=== PATIENT | male | born 1935 | race Caucasian/White ===

== ENCOUNTER 2017-08-21 13:18 | Observation (INO) | payer MEDICARE, OTHER ==
--- NOTE | 2017-08-21 13:56 | RADIOLOGY REPORT (SQ) ---
EXAM DESCRIPTION: CT HEAD WITHOUT COMPLETED DATE/TIME: 08/21/2017 1:46 pm REASON FOR STUDY: altered COMPARISON: None. TECHNIQUE: Axial images acquired through the brain without intravenous contrast. Images reviewed wi th bone, brain and subdural windows. Images stored on PACS. All CT scanners at this facility use dose modulation, iterative reconstruction, and/or weight based d osing when appropriate to reduce radiation dose to as low as reasonably achievable (ALARA). [facility]: Dose Right [facility]: CareDose [facility]: Dose Right [facility]: Teradose 4D [facility]: [employer] RADIATION DOSE: CT Rad equipment meets quality standard of care and radiation dose reduction techniq ues were employed. CTDIvol: 64.6 mGy. DLP: 1163 mGy-cm.mGy. LIMITATIONS: None. FINDINGS: VENTRICLES: Prominent. CEREBRUM: No masses. No hemorrhage. No midline shift. Areas of low density in the white matter mos t likely due to chronic micro-vascular ischemic change. No evidence for acute infarction. CEREBELLUM: No masses. No hemorrhage. No alteration of density. No evidence for acute infarction. EXTRAAXIAL SPACES: Age-related involutional change. No fluid collections. No masses. ORBITS AND GLOBE: No intra- or extraconal masses. Normal contour of globe without masses. CALVARIUM: No fracture. PARANASAL SINUSES: No fluid or mucosal thickening. SOFT TISSUES: No mass or hematoma. OTHER: No other significant finding. IMPRESSION: CHRONIC CHANGES OF ATROPHY AND MICROVASCULAR ISCHEMIA. NO ACUTE PROCESS. EVIDENCE OF ACUTE STROKE: NO. TECHNICAL DOCUMENTATION: JOB ID: [id number] Quality ID # [id number]: Final reports with documentation of one or more dose reduction techniques (e.g., Au tomated exposure control, adjustment of the mA and/or kV according to patient size, use of iterative reconstruction technique) 2010 [employer]- All Rights Reserved
--- NOTE | 2017-08-21 14:06 | RADIOLOGY REPORT (SQ) ---
EXAM DESCRIPTION: CHEST PA/LAT COMPLETED DATE/TIME: 08/21/2017 1:58 pm REASON FOR STUDY: confusion COMPARISON: None. EXAM PARAMETERS: NUMBER OF VIEWS: two views TECHNIQUE: Digital Frontal and Lateral radiographic views of the chest acquired. RADIATION DOSE: NA LIMITATIONS: none FINDINGS: LUNGS AND PLEURA: No opacities, masses or pneumothorax. No pleural effusion. MEDIASTINUM AND HILAR STRUCTURES: No masses or contour abnormalities. HEART AND VASCULAR STRUCTURES: Heart normal size. No evidence for failure. BONES: No acute findings. HARDWARE: Left shoulder arthroplasty. OTHER: No other significant finding. IMPRESSION: NO SIGNIFICANT RADIOGRAPHIC FINDING IN THE CHEST. TECHNICAL DOCUMENTATION: JOB ID: [id number] [employer]- All Rights Reserved
[2017-08-21 14:26] LABS: ABSOLUTE BASOPHILS # (AUTO) 0.1 10^3/uL (0.0-0.2); ABSOLUTE LYMPHOCYTES (AUTO) 1.5 10^3/uL (0.5-4.7); ABSOLUTE MONOCYTES (AUTO) 0.9 10^3/uL (0.1-1.4); ABSOLUTE NEUT (AUTO) 6.6 10^3/uL (1.7-8.2); BASOPHILS % (AUTO) 0.9 % (0-2); EOSINOPHILS % (AUTO) 0.3 % (0-6); HEMATOCRIT 38.3 % (37.9-51.0); LYMPHOCYTES % (AUTO) 16.6 % (13-45); MEAN CORPUSCULAR HEMOGLOBIN 31.7 pg (27.0-33.4); MEAN CORPUSCULAR HGB CONC 33.9 g/dL (32.0-36.0); MEAN CORPUSCULAR VOLUME 94 fl (80-97); MONOCYTES % (AUTO) 9.8 % (3-13); PLATELET COUNT 191 10^3/uL (150-450); RED CELL DISTRIBUTION WIDTH 13.7 % (11.5-14.0); SEGMENTED NEUTROPHILS % (AUTO) 72.4 % (42-78); TOTAL CELLS COUNTED % (AUTO) 100 %; WHITE BLOOD COUNT 9.2 10^3/uL (4.0-10.5)
--- NOTE | 2017-08-21 14:41 | ER Document Report ---
ED General - General Chief Complaint: Altered Mental Status Stated Complaint: CONFUSION Time Seen by Provider: 08/21/17 13:25 Mode of Arrival: Ambulatory Information source: Patient Notes: 81-year-old male presents with with concerns of confusion. It is noted that the patient's has been having confusion episodes over the past few weeks. Patient did have a recent dental infection was placed on amoxicillin and notes his tooth does not hurt any longer but that they are concerned that the Amoxil may be causing new onset confusion. Patient himself denies any weakness any numbness and pain. It is noted that patient does have a tremor for which she has not been evaluated There is no family history of dementia TRAVEL OUTSIDE OF THE [place] IN LAST 30 DAYS: No - HPI Onset: Other Onset/Duration: Worse - Over the past few days Quality of pain: No pain Severity: Mild Pain Level: Denies Associated symptoms: Other Exacerbated by: Denies Relieved by: Denies Similar symptoms previously: No Recently seen / treated by doctor: No - Related Data Allergies/Adverse Reactions: No Known Allergies Allergy (Verified 08/21/17 13:36) Past Medical History - Social History Smoking Status: Never Smoker Cigarette use (# per day): No Chew tobacco use (# tins/day): No Smoking Education Provided: No Family History: Reviewed & Not Pertinent Patient has suicidal ideation: No Patient has homicidal ideation: No - Past Medical History Cardiac Medical History: Reports: Hx Hypertension Renal/ Medical History: Denies: Hx Peritoneal Dialysis Review of Systems - Review of Systems Notes: REVIEW OF SYSTEMS: CONSTITUTIONAL : Denies fever, chills, or sweats. Denies recent illness. EENT: Denies eye, ear, throat, or mouth pain or symptoms. Denies nasal or sinus congestion or discharge. Denies throat, tongue, or mouth swelling or difficulty swallowing. CARDIOVASCULAR: Denies chest pain. Denies palpitations or racing or irregular heart beat. Denies ankle edema. RESPIRATORY: Denies cough, cold, or chest congestion. Denies shortness of breath, difficulty breathing, or wheezing. GASTROINTESTINAL: Denies abdominal pain or distention. Denies nausea, vomiting , or diarrhea. Denies blood in vomitus, stools, or per rectum. Denies black, tarry stools. Denies constipation. GENITOURINARY: Denies difficulty urinating, painful urination, burning, frequency, blood in urine, or discharge. MUSCULOSKELETAL: Denies back or neck pain or stiffness. Denies joint pain or swelling. SKIN: Denies rash, lesions or sores. HEMATOLOGIC : Denies easy bruising or bleeding. LYMPHATIC: Denies swollen, enlarged glands. NEUROLOGICAL: Admits to confusion PSYCHIATRIC: Denies anxiety or stress. Denies depression, suicidal ideation, or homicidal ideation. ALL OTHER SYSTEMS REVIEWED AND NEGATIVE. Dictation was performed using [employer] voice recognition software PHYSICAL EXAMINATION: GENERAL: Well-appearing, well-nourished and in no acute distress. HEAD: Atraumatic, normocephalic. EYES: Pupils equal round and reactive to light, extraocular movements intact, sclera anicteric, conjunctiva are normal. ENT: Nares patent, oropharynx clear without exudates. Moist mucous membranes. NECK: Normal range of motion, supple without lymphadenopathy LUNGS: Breath sounds clear to auscultation bilaterally and equal. No wheezes rales or rhonchi. HEART: Regular rate and rhythm without murmurs ABDOMEN: Soft, nontender, nondistended abdomen. No guarding, no rebound. No masses appreciated. Musculoskeletal: Normal range of motion, no pitting or edema. No cyanosis. NEUROLOGICAL: Cranial nerves grossly intact. Intermittent slurred speech normal gait. Normal sensory, motor exams PSYCH: Normal mood, normal affect. SKIN: Warm, Dry, normal turgor, no rashes or lesions noted. Physical Exam - Vital signs Vitals: Temp Pulse Resp BP Pulse Ox 98.8 F 81 16 165/71 H 97 08/21/17 13:35 08/21/17 13:35 08/21/17 13:35 08/21/17 13:35 08/21/17 13:35 Course - Re-evaluation Re-evalutation: 08/21/17 16:52 Patient does intermittently become confused while I speak with him, he is able to explain to me that he had dental infection that his tooth no longer hurts. Patient was sent for CT lab work. Overall he looks quite well I believe this may be more related to dementia however quick onset and worsening symptoms are the past few days are concerning enough that I would like to admit the patient for metabolic encephalopathy - Vital Signs Vital signs: Temp Pulse Resp BP Pulse Ox 98.8 F 81 16 165/71 H 97 08/21/17 13:35 08/21/17 13:35 08/21/17 13:35 08/21/17 13:35 08/21/17 13:35 - Laboratory Result Diagrams: 08/21/17 14:16 08/21/17 14:16 Laboratory results interpreted by me: 08/21/17 08/21/17 08/21/17 14:16 14:16 14:26 RBC 4.10 L Hgb 13.0 L Sodium 131.7 L Chloride 96 L Total Bilirubin 1.9 H Urine Protein 100 H Urine Ketones TRACE H Urine Ascorbic Acid 40 H - Diagnostic Test Radiology reviewed: Image reviewed, Reports reviewed - EKG Interpretation by Me EKG shows normal: Sinus rhythm, [place], Intervals, QRS Complexes Discharge - Discharge Clinical Impression: Encephalopathy Altered mental state Qualifiers: Altered mental status type: unspecified Qualified Code(s): R41.82 - Altered mental status, unspecified Hypertension Qualifiers: Hypertension type: essential hypertension Qualified Code(s): I10 - Essential ( primary) hypertension Condition: Stable Disposition: ADMITTED OBSERVATION Admitting Provider: Hospitalist Unit Admitted: Telemetry
[2017-08-21 14:45] LABS: APPEARANCE,URINE CLOUDY; BILIRUBIN,URINE NEGATIVE (NEGATIVE); COLOR,URINE YELLOW; GLUCOSE, URINE NEGATIVE (NEGATIVE); KETONES,URINE TRACE mg/dL (NEGATIVE); LEUKOCYTE ESTERASE,URINE NEGATIVE (NEGATIVE); NITRITE,URINE NEGATIVE (NEGATIVE); PROTEIN,URINE 100 mg/dL (NEGATIVE); URINE SPECIFIC GRAVITY 1.012; UROBILINOGEN,URINE NEGATIVE mg/dL (<2.0)
[2017-08-21 14:46] LABS: ALANINE AMINOTRANSFERASE 28 U/L (21-72); ALBUMIN 3.9 g/dL (3.5-5.0); ALKALINE PHOSPHATASE 73 U/L (38-126); ANION GAP 9 (5-19); ASPARTATE AMINO TRANSFERASE 32 U/L (17-59); BILIRUBIN,DIRECT 0.3 mg/dL (0.0-0.4); BILIRUBIN,TOTAL 1.9 mg/dL (0.2-1.3); BLOOD UREA NITROGEN 19 mg/dL (7-20); CALCIUM 9.7 mg/dL (8.4-10.2); CARBON DIOXIDE 27 mmol/L (22-30); CHLORIDE 96 mmol/L (98-107); CREATINE KINASE 129 U/L (55-170); GLUCOSE 108 mg/dL (75-110); POTASSIUM 4.4 mmol/L (3.6-5.0); SODIUM 131.7 mmol/L (137-145); TOTAL PROTEIN 6.8 g/dL (6.3-8.2)
[2017-08-21 14:53] LABS: CREATINE KINASE MB 0.72 ng/mL (<4.55)
[2017-08-21 14:57] LABS: TROPONIN I 0.031 ng/mL
[2017-08-21] MEDS ORDERED: NORMAL SALINE 1000 ML 1,000 ML IV PRN (16:51)
[2017-08-21] MEDS ORDERED: IPRATROPIUM/ALBUTEROL 0.5-2.5 MG/3 ML AMPUL NEB PRN (16:51)
[2017-08-21] MEDS ORDERED: DOCUSATE SODIUM 100 MG CAPSULE PO PRN (16:56)
[2017-08-21] MEDS ORDERED: ZOLPIDEM TARTRATE 5 MG TABLET PO PRN (16:56)
[2017-08-21] MEDS ORDERED: ACETAMINOPHEN 325 MG TABLET PO PRN (16:56)
[2017-08-21] MEDS ORDERED: ONDANSETRON HCL INJ/PF 4 MG/2 ML SDV IV PRN (16:56)
[2017-08-21] MEDS ORDERED: LORAZEPAM INJ 2 MG/1 ML VIAL IV PRN (17:07)
--- NOTE | 2017-08-21 17:25 | PDOC H&P ---
History of Present Illness Admission Date/PCP: 08/21/17 16:48 Patient complains of: Confusion History of Present Illness: CHRIS COLBERT JR is a 81 year old male the past medical history of hypertension , aortic stenosis, osteoarthritis, presents to the emergency department with a report of several weeks of forgetfulness and mild confusion that suddenly worsened in the last 2-3 days associated with suddenly worsening insomnia. The patient has had trouble with word finding, forgetfulness, and attention to detail. 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 He does report that he was recently on amoxicillin for a tooth ache which he completed 1 day ago. He did have a fall approximately 3 weeks ago when he misstepped coming down the stairs from the attic. He did hit his head and was evaluated in an outside emergency department with a CT at that time. The patient also admits to drinking 5-6 ounces of bourbon daily as well as eating 10 gin-soaked raisins daily. He stopped his alcohol intake 2 days ago thinking that this may improve his mental functioning. Both he and his are adamant that the acute worsening of confusion precedes his alcohol cessation. Initial evaluation in the emergency room is essentially unrevealing; chest x- ray and head CT were normal. Laboratory evaluation does show some mild hyponatremia as well as ketones and protein in his urine. He is referred to the hospital service for observation and evaluation of his encephalopathy. Past Medical History Cardiac Medical History: Reports: Hypertension, Heart Murmur - Aortic stenosis Pulmonary Medical History: Reports: Chronic Obstructive Pulmonary Disease (COPD) EENT Medical History: Reports: None Neurological Medical History: Reports: None Endocrine Medical History: Reports: None Renal/ Medical History: Reports: None Malignancy Medical History: Reports: None GI Medical History: Reports: None Musculoskeltal Medical History: Reports: Arthritis Skin Medical History: Reports: None Psychiatric Medical History: Reports: Alcohol Dependency Traumatic Medical History: Reports: None Hematology: Reports: None Infectious Medical History: Reports: None Past Surgical History Past Surgical History: Reports: Herniorrhaphy, Orthopedic Surgery Social History Information Source: Patient, Relative Lives with: Spouse/Significant other Smoking Status: Former Smoker - 3 ppd x 25 years Frequency of Alcohol Use: Heavy - daily; 5-6 oz of bourbon Hx Recreational Drug Use: No Drugs: None - Advance Directive Resuscitation Status: Full Code Family History Family History: Reviewed & Not Pertinent Parental Family History Reviewed: Yes Children Family History Reviewed: Yes Sibling(s) Family History Reviewed.: Yes Medication/Allergy Allergies/Adverse Reactions: No Known Allergies Allergy (Verified 08/21/17 13:36) Review of Systems Constitutional: PRESENT: fatigue - insomnia x 3 days. ABSENT: anorexia, chills , fever(s), headache(s), night sweats, weakness Eyes: ABSENT: visual disturbances Ears: ABSENT: hearing changes Nose, Mouth, and Throat: PRESENT: mouth pain - recent dental pain. ABSENT: headache(s) Cardiovascular: ABSENT: chest pain, dyspnea on exertion, edema, orthropnea, palpitations Respiratory: ABSENT: cough, hemoptysis Gastrointestinal: ABSENT: abdominal pain, constipation, diarrhea, hematemesis, hematochezia, nausea, vomiting Genitourinary: ABSENT: dysuria, hematuria Musculoskeletal: ABSENT: joint swelling Integumentary: ABSENT: rash, wounds Neurological: PRESENT: confusion, memory loss. ABSENT: abnormal gait, abnormal movements, abnormal speech, convulsions, dizziness, focal weakness, frequent falls, lack of coordination, numbness, paresthesias, restless legs, syncope, tingling, tremor(s), vertigo, weakness Psychiatric: ABSENT: anxiety, depression, homidical ideation, suicidal ideation Endocrine: ABSENT: cold intolerance, heat intolerance, polydipsia, polyuria Hematologic/Lymphatic: ABSENT: easy bleeding, easy bruising Physical Exam Vital Signs: Temp Pulse Resp BP Pulse Ox 98.8 F 81 16 165/71 H 97 08/21/17 13:35 08/21/17 13:35 08/21/17 13:35 08/21/17 13:35 08/21/17 13:35 General appearance: PRESENT: no acute distress, well-developed, well-nourished Head exam: PRESENT: atraumatic, normocephalic Eye exam: PRESENT: conjunctiva pink, EOMI, PERRLA. ABSENT: scleral icterus Ear exam: PRESENT: normal external ear exam Mouth exam: PRESENT: moist, tongue midline Neck exam: ABSENT: carotid bruit, JVD, lymphadenopathy, thyromegaly Respiratory exam: PRESENT: clear to auscultation alee, symmetrical, unlabored. ABSENT: rales, rhonchi, wheezes Cardiovascular exam: PRESENT: RRR, +S1, +S2, systolic murmur. ABSENT: diastolic murmur, rubs Pulses: PRESENT: normal dorsalis pedis pul Vascular exam: PRESENT: normal capillary refill GI/Abdominal exam: PRESENT: normal bowel sounds, soft. ABSENT: distended, guarding, mass, organolmegaly, rebound, tenderness Rectal exam: PRESENT: deferred Extremities exam: PRESENT: full ROM. ABSENT: calf tenderness, clubbing, pedal edema Neurological exam: PRESENT: alert, awake, oriented to person, oriented to place , oriented to time, oriented to situation, CN II-XII grossly intact, other - The patient is slow to respond and has difficulty with word finding; he frequently says the wrong word and does recognize his own mistake and is capable of correcting after a few attempts. He is forgetful and repetitive. Resting tremor that is worsened with intentional movements. ABSENT: motor sensory deficit Psychiatric exam: PRESENT: appropriate affect, normal mood. ABSENT: homicidal ideation, suicidal ideation Skin exam: PRESENT: dry, intact, warm. ABSENT: cyanosis, rash Results Impressions: Chest X-Ray 08/21/17 13:25 IMPRESSION: NO SIGNIFICANT RADIOGRAPHIC FINDING IN THE CHEST. Head CT 08/21/17 13:32 IMPRESSION: CHRONIC CHANGES OF ATROPHY AND MICROVASCULAR ISCHEMIA. NO ACUTE PROCESS. EVIDENCE OF ACUTE STROKE: NO. Assessment & Plan - Diagnosis (1) Encephalopathy Is this a current diagnosis for this admission?: Yes Plan: The patient presents with a complaint of several weeks of mild confusion the acutely worsened in the last 72 hours. He was recently treated with amoxicillin but otherwise has no indication changes. Does admit to 5-6 ounces of bourbon daily and reports that his last drink was 2 days ago. He is noted to have a resting tremor that worsened significantly with intention; raising concern for a cerebellar infarct. Differential diagnoses include CVA, neuro degenerative disorder such as Parkinson's, hypothyroidism, dehydration, alcohol dependence/abuse. He is admitted to the floor under observational status on continuous cardiac telemetry. We will complete the TIA/CVA workup with echocardiogram, carotid Dopplers, and MRI. Will check TSH. Will obtain lipid panel, hemoglobin A1c to further stratisfy risks. There are no indications of an acute infection and so will hold antibiotics at this time. We will rehydrate the patient with IV fluids. Repeat CBC and chemistry in the a.m. Provide for patient safety. (2) Hyponatremia Is this a current diagnosis for this admission?: Yes Plan: Likely secondary to dehydration and continuous alcohol use. Will start the patient on IV fluids. (3) Dehydration Is this a current diagnosis for this admission?: Yes Plan: We will start the patient on IV fluids and encourage p.o. intake. (4) COPD (chronic obstructive pulmonary disease) Is this a current diagnosis for this admission?: Yes Plan: We will continue the patient's education; Advair. Duo nebs as needed for shortness of breath. (5) Aortic stenosis Is this a current diagnosis for this admission?: Yes Plan: The patient reports a history of aortic stenosis that is being followed by the valve clinic at [facility]. Will obtain echocardiogram as part of the TIA/CVA workup. (6) Hypertension Qualifiers: Hypertension type: essential hypertension Qualified Code(s): I10 - Essential (primary) hypertension Is this a current diagnosis for this admission?: Yes Plan: We will continue the patient's home medication; losartan. The patient is placed on a cardiac diet. (7) Alcohol dependence Is this a current diagnosis for this admission?: Yes Plan: The patient denies a history of alcohol withdrawal. We will have as needed Ativan available for signs or symptoms of acute alcohol withdrawal. - Time Time Spent: 50 to 70 Minutes Medications reviewed and adjusted accordingly: Yes Anticipated discharge: Home Within: within 24 hours
[2017-08-21 17:36] LABS: FREE T3 3.79 pg/mL (2.77-5.27); FREE T4 (FREE THYROXINE) 1.43 ng/dL (0.78-2.19)
[2017-08-21 17:37] LABS: URINE AMPHETAMINES SCREEN NEGATIVE; URINE BARBITURATES SCREEN NEGATIVE; URINE BENZODIAZEPINES SCREEN NEGATIVE; URINE COCAINE SCREEN NEGATIVE; URINE MARIJUANA (THC) SCREEN NEGATIVE; URINE METHADONE SCREEN NEGATIVE; URINE PHENCYCLIDINE SCREEN NEGATIVE
[2017-08-21 17:50] LABS: THYROID STIMULATING HORMONE 1.26 uIU/mL (0.47-4.68)
--- NOTE | 2017-08-21 19:31 | RADIOLOGY REPORT (SQ) ---
EXAM DESCRIPTION: MRI HEAD WITHOUT COMPLETED DATE/TIME: 08/21/2017 6:44 pm REASON FOR STUDY: TIA/CVA workup R41.82 ALTERED MENTAL STATUS, UNSPECIFIED G93.40 ENCEPHALOPATHY, UNSPECIFIED R73.01 IMPAIRED FASTING GLUCOSE COMPARISON: Noncontrast head CT 08/21/2017 TECHNIQUE: Multiplanar imaging includes non-contrasted T1, T2, FLAIR, and diffusion with ADC map seq uences. Images stored on PACS. LIMITATIONS: None. FINDINGS: ANATOMY: No anomalies. Normal vascular flow voids. Pituitary fossa normal. CSF SPACES: Atrophy induced prominence of ventricles and CSF spaces. CEREBRUM: High signal intensity lesions scattered throughout the white matter on FLAIR imaging with d istribution suggesting micro-vascular ischemic changes. No evidence of hemorrhage, mass, or extraaxi al fluid collection. POSTERIOR FOSSA: No signal alteration. No hemorrhage. No edema, masses or mass effect. Internal dana tory canals, cerebello-pontine angles, mastoids normal. DIFFUSION IMAGING: Negative for acute or sub-acute infarction. ORBITS: No masses. Globes normal. PARANASAL SINUSES: No fluid levels. Mucosa normal. OTHER: No other significant finding. IMPRESSION: ATROPHY AND CHRONIC MICRO-VASCULAR ISCHEMIC CHANGES. OTHERWISE NORMAL MRI OF THE BRAIN W ITHOUT INTRAVENOUS GADOLINIUM CONTRAST. EVIDENCE OF ACUTE STROKE: NO. TECHNICAL DOCUMENTATION: JOB ID: [id number]- All Rights Reserved
--- NOTE | 2017-08-21 22:44 | RADIOLOGY REPORT (SQ) ---
EXAM DESCRIPTION: CAROTID DOPPLER COMPLETED DATE/TIME: 08/21/2017 10:26 pm REASON FOR STUDY: TIA/CVA workup R41.82 ALTERED MENTAL STATUS, UNSPECIFIED G93.40 ENCEPHALOPATHY, UNSPECIFIED R73.01 IMPAIRED FASTING GLUCOSE COMPARISON: None. TECHNIQUE: Grayscale ultrasound, Doppler velocity and spectra, and color Doppler images acquired of the extra-cranial carotid and vertebral arteries. Images stored on PACS. LIMITATIONS: None. FINDINGS: RIGHT CAROTID CCA Velocities: Within normal limits. ICA Velocities Peak systolic 77 cm/s. End diastolic 13 cm/s. Proximal ICA/CCA peak systolic ratio 0.63. Spectra normal. No significant plaque. LEFT CAROTID CCA Velocities: Within normal limits. ICA Velocities Peak systolic 67 cm/s. End diastolic 15 cm/s. Proximal ICA/CCA peak systolic ratio 0.37. Spectra normal. No significant plaque. VERTEBRAL ARTERIES: Antegrade flow. Normal waveforms. SUBCLAVIAN ARTERIES: No finding. OTHER: No other significant finding. IMPRESSION: NO HEMODYNAMICALLY SIGNIFICANT STENOSIS. COMMENT: Quality ID #[id number]: Velocity criteria are extrapolated from the diameter data as defined by t he Society of Radiologists in Ultrasound Consensus Conference. Radiology 2003: 229; 340-346. TECHNICAL DOCUMENTATION: JOB ID: [id number] [employer]- All Rights Reserved
[2017-08-22] MEDS: FAMOTIDINE 20 MG TABLET PO SCH ×2 (00:04→11:30)
[2017-08-22] MEDS: FLUTICASONE/SALMETEROL DISKUS 250-50 MCG/DOSE IH SCH ×2 (00:06→11:30)
[2017-08-22] MEDS: LOSARTAN POTASSIUM 25 MG TABLET PO SCH ×2 (00:06→11:30)
[2017-08-22] MEDS ORDERED: KETOROLAC TROMETHAMINE INJ/PF 30 MG/1 ML SDV IV PRN (01:20)
[2017-08-22] MEDS ORDERED: DIPHENHYDRAMINE HCL 25 MG CAPSULE PO PRN (01:20)
[2017-08-22] MEDS ORDERED: CLINDAMYCIN HCL 150 MG CAPSULE PO ONE (01:45)
[2017-08-22] MEDS ORDERED: DIPHENHYDRAMINE HCL 25 MG CAPSULE PO ONE (02:00)
[2017-08-22 03:10] LABS: HEMATOCRIT 35.3 % (37.9-51.0)
[2017-08-22 03:13] LABS: MEAN CORPUSCULAR HEMOGLOBIN 31.4 pg (27.0-33.4); MEAN CORPUSCULAR VOLUME 92 fl (80-97); PLATELET COUNT 179 10^3/uL (150-450); RED BLOOD COUNT 3.82 10^6/uL (4.35-5.55); RED CELL DISTRIBUTION WIDTH 13.4 % (11.5-14.0); WHITE BLOOD COUNT 8.4 10^3/uL (4.0-10.5)
[2017-08-22 03:34] LABS: ANION GAP 7 (5-19); BLOOD UREA NITROGEN 18 mg/dL (7-20); CALCIUM 9.3 mg/dL (8.4-10.2); CARBON DIOXIDE 26 mmol/L (22-30); CHLORIDE 98 mmol/L (98-107); CHOLESTEROL 174.71 mg/dL (0-200); GLUCOSE 109 mg/dL (75-110); POTASSIUM 4.1 mmol/L (3.6-5.0); SODIUM 130.5 mmol/L (137-145); TRIGLYCERIDES 53 mg/dL (<150)
[2017-08-22 03:45] LABS: DIRECT LDL 106 mg/dL (<100)
[2017-08-22] MEDS ORDERED: CLINDAMYCIN HCL 150 MG CAPSULE PO SCH (09:00)
[2017-08-22] MEDS ORDERED: ENOXAPARIN SODIUM INJ 40 MG/0.4 ML DISP.SYRIN SUBCUT SCH (10:00)
[2017-08-22 10:48] VITALS: BP 118/93
--- NOTE | 2017-08-23 15:46 | PDOC DISCHARGE SUMMARY ---
General - Admit/Disc Date/PCP Admission Date/Primary Care Provider: 08/21/17 16:48 Discharge Date: 08/22/17 - Discharge Diagnosis (1) Encephalopathy Is this a current diagnosis for this admission?: Yes (2) Hyponatremia Is this a current diagnosis for this admission?: Yes (3) Dehydration Is this a current diagnosis for this admission?: Yes (4) COPD (chronic obstructive pulmonary disease) Is this a current diagnosis for this admission?: Yes (5) Aortic stenosis Is this a current diagnosis for this admission?: Yes (6) Hypertension Is this a current diagnosis for this admission?: Yes (7) Alcohol dependence Is this a current diagnosis for this admission?: Yes - Additional Information Resuscitation Status: Full Code Discharge Diet: Cardiac Discharge Activity: Activity As Tolerated, Balance Activity w/Rest, No Driving Prescriptions: Clindamycin HCl [Cleocin 150 mg Capsule] 300 mg PO Q6A #40 capsule Diazepam [Valium 2 mg Tablet] 2 mg PO Q6HP PRN #15 tablet PRN Reason: Anxiety/Agitation Home Medications: Acetaminophen [Acetaminophen Extra Strength] 500 mg PO PRN PRN 08/22/17 Clindamycin HCl [Cleocin 150 mg Capsule] 300 mg PO Q6A #40 capsule 08/22/17 Diazepam [Valium 2 mg Tablet] 2 mg PO Q6HP PRN #15 tablet 08/22/17 Losartan Potassium [Cozaar 100 mg Tablet] 100 mg PO DAILY 08/22/17 History of Present Illness History of Present Illness: CHRIS COLBERT JR is a 81 year old male the past medical history of hypertension , aortic stenosis, osteoarthritis, presents to the emergency department with a report of several weeks of forgetfulness and mild confusion that suddenly worsened in the last 2-3 days associated with suddenly worsening insomnia. The patient has had trouble with word finding, forgetfulness, and attention to detail. 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 He does report that he was recently on amoxicillin for a tooth ache which he completed 1 day ago. He did have a fall approximately 3 weeks ago when he misstepped coming down the stairs from the attic. He did hit his head and was evaluated in an outside emergency department with a CT at that time. The patient also admits to drinking 5-6 ounces of bourbon daily as well as eating 10 gin-soaked raisins daily. He stopped his alcohol intake 2 days ago thinking that this may improve his mental functioning. Both he and his are adamant that the acute worsening of confusion precedes his alcohol cessation. Initial evaluation in the emergency room is essentially unrevealing; chest x- ray and head CT were normal. Laboratory evaluation does show some mild hyponatremia as well as ketones and protein in his urine. He is referred to the hospital service for observation and evaluation of his encephalopathy. Hospital Course Hospital Course: The patient was admitted through the emergency department for a complaint of confusion that has been gradually worsening for several weeks but became acutely worse over the last 3 days following his cessation of alcohol. The patient states that he typically drinks 5-6 ounces of bourbon daily but stopped this approximately 3 days ago thinking that this may have been contributing to his confusion. Patient did have a fall approximately 3 weeks ago and was evaluated at an outside facility emergency department with CAT scan imaging that was reported to be normal by the family. Additionally, the patient has been treated by his dentist with amoxicillin and has a planned dental extraction on . The patient did not complete this antibiotic, also believing that it may have been contributing to his confusion. Otherwise, he has been in his normal state of health. A head CT revealed chronic changes of atrophy and microvascular ischemia but no acute processes or evidence of acute stroke. Follow-up head MRI confirmed atrophy and chronic microvascular ischemic changes in an otherwise normal MRI of the brain. Carotid Dopplers were obtained; no evidence of hemodynamically significant stenosis. The patient and spouse declined to have a echocardiogram done while inpatient as he had recently had one done by his logistics service representative in [place] which was also reported to be normal. A long discussion was had with the family regarding possibility of an underlying early dementia that was worsened by his alcohol dependence and sudden cessation of alcohol intake. They were advised to complete antibiotics for the tooth abscess and continue with planned dental care. On day of discharge, the patient is stable and discharged into his 's care. He is provided prescriptions for clindamycin and Valium 2 mg every 6 hours as needed for anxiety, agitation, withdrawal symptoms. She is encouraged to lock up or throw away all narcotic and sedating medications in the household. He is recommended to stop all alcohol intake. He is advised to follow-up with his primary care provider within 1 week if not improved for consideration of outpatient neurology referral. Physical Exam Vital Signs: Temp Pulse Resp BP Pulse Ox 98.8 F 66 18 118/93 H 99 08/22/17 10:42 08/22/17 10:42 08/22/17 10:42 08/22/17 10:42 08/22/17 10:42 Intake & Output 08/22/17 08/23/17 08/24/17 06:59 06:59 06:59 Intake Total 3 Output Total 0 Balance 3 Weight 83.3 kg General appearance: PRESENT: no acute distress, well-developed, well-nourished Head exam: PRESENT: atraumatic, normocephalic Eye exam: PRESENT: conjunctiva pink, EOMI, PERRLA. ABSENT: scleral icterus Ear exam: PRESENT: normal external ear exam Mouth exam: PRESENT: moist, tongue midline Neck exam: ABSENT: carotid bruit, JVD, lymphadenopathy, thyromegaly Respiratory exam: PRESENT: clear to auscultation alee, symmetrical, unlabored. ABSENT: rales, rhonchi, wheezes Cardiovascular exam: PRESENT: RRR, +S1, +S2. ABSENT: diastolic murmur, rubs, systolic murmur Pulses: PRESENT: normal dorsalis pedis pul Vascular exam: PRESENT: normal capillary refill GI/Abdominal exam: PRESENT: normal bowel sounds, soft. ABSENT: distended, guarding, mass, organolmegaly, rebound, tenderness Rectal exam: PRESENT: deferred Extremities exam: PRESENT: full ROM. ABSENT: calf tenderness, clubbing, pedal edema Neurological exam: PRESENT: alert, awake, oriented to person, oriented to place , oriented to time, oriented to situation, CN II-XII grossly intact, other - Forgetful and repetitive of conversation/questions. ABSENT: motor sensory deficit Psychiatric exam: PRESENT: appropriate affect, normal mood. ABSENT: homicidal ideation, suicidal ideation Skin exam: PRESENT: dry, intact, warm. ABSENT: cyanosis, rash Results Laboratory Results: 08/22/17 03:00 08/22/17 03:00 08/21/17 08/22/17 08/22/17 20:15 03:00 09:41 Troponin I 0.043 0.028 0.027 Impressions: Carotid Doppler Study 08/21/17 00:00 IMPRESSION: NO HEMODYNAMICALLY SIGNIFICANT STENOSIS. Head MRI 08/21/17 00:00 IMPRESSION: ATROPHY AND CHRONIC MICRO-VASCULAR ISCHEMIC CHANGES. OTHERWISE NORMAL MRI OF THE BRAIN WITHOUT INTRAVENOUS GADOLINIUM CONTRAST. EVIDENCE OF ACUTE STROKE: NO. Chest X-Ray 08/21/17 13:25 IMPRESSION: NO SIGNIFICANT RADIOGRAPHIC FINDING IN THE CHEST. Head CT 08/21/17 13:32 IMPRESSION: CHRONIC CHANGES OF ATROPHY AND MICROVASCULAR ISCHEMIA. NO ACUTE PROCESS. EVIDENCE OF ACUTE STROKE: NO. Qualifiers PATEINT BEING DISCHARGED WITH ANY OF THE FOLLOWING DIAGNOSIS?: No
== END 2017-08-22 13:23 | disposition home or self-care (01) ==
LOC: ER 13:18 → EH 16:48 → 3W 19:16
PROVIDERS: ADMIT Internal Medicine; ATTEND Internal Medicine
DX: G93.40 Encephalopathy, unspecified (principal); E87.1 Hypo-osmolality and hyponatremia; E86.0 Dehydration; J44.9 Chronic obstructive pulmonary disease, unspecified; I35.0 Nonrheumatic aortic (valve) stenosis; I10 Essential (primary) hypertension; F10.20 Alcohol dependence, uncomplicated; M19.90 Unspecified osteoarthritis, unspecified site; G47.00 Insomnia, unspecified; K04.7 Periapical abscess without sinus; R41.3 Other amnesia; G25.2 Other specified forms of tremor; R47.89 Other speech disturbances; Z91.81 History of falling; Z87.891 Personal history of nicotine dependence
CPT/HCPCS: 99285; 36415 ×2; 84439; 82553; 82550; 84443; 85025; 85027; 80048; 80053; 81001; 84484 ×2; 80307; 84481; 83036; 80061; 93880; 70551; 71046; 70450; A9270 ×4; G0378; J3490